=== PATIENT | female | born 1955 | race Two or more races ===

== ENCOUNTER 2021-11-21 11:29 | Outpatient (CLI) | payer OTHER | END 2021-11-21 11:33 | disposition home or self-care (01) | LOC: RAD 11:29 | PROVIDERS: ATTEND Orthopaedic Surgery | DX: M25.551 Pain in right hip (principal); M25.552 Pain in left hip ==

== ENCOUNTER 2021-12-10 09:29 | Outpatient (CLI) | payer OTHER | END 2021-12-10 15:00 | disposition home or self-care (01) | LOC: LAB 09:29 | PROVIDERS: ATTEND Orthopaedic Surgery | DX: D64.89 Other specified anemias (principal); N39.0 Urinary tract infection, site not specified; I49.8 Other specified cardiac arrhythmias; I10 Essential (primary) hypertension; Z76.89 Persons encountering health services in other specified circumstances; E03.8 Other specified hypothyroidism; D68.8 Other specified coagulation defects; B95.62 Methicillin resistant Staphylococcus aureus infection as the cause of diseases classified elsewhere; E11.9 Type 2 diabetes mellitus without complications; E83.42 Hypomagnesemia; E88.89 Other specified metabolic disorders; B96.3 Hemophilus influenzae [H. influenzae] as the cause of diseases classified elsewhere ==

== ENCOUNTER 2021-12-10 14:08 | Inpatient (IN) | payer OTHER ==
[~2021-12-10] VITALS: Ht 170.2 cm; Wt 70.3 kg
[2021-12-19] MEDS ORDERED: OMEPRAZ PO (14:57)
[2021-12-19] MEDS ORDERED: XARELTO10 MG PO (14:57)
[2021-12-19] MEDS ORDERED: MEMANTINE PO (14:58)
[2021-12-25] MEDS ORDERED: CELECOXIB200 MG (11:03)
[2021-12-25] MEDS ORDERED: OMEPRAZOLE40 MG (11:03)
[2021-12-25] MEDS ORDERED: GABAPENTIN100 M2 (11:03)
[2021-12-25] MEDS ORDERED: FLUOXETINE HCL20 MG (11:03)
[2021-12-25] MEDS ORDERED: MONTELUKAST SOD10 MG (11:04)
[2021-12-25] MEDS ORDERED: ATORVASTATIN CA20 MG (11:04)
[2021-12-25] MEDS ORDERED: QUETIAPINE FUM200 M1 (11:04)
[2021-12-25] MEDS ORDERED: FLUCONAZOLE150 MG (11:04)
[2021-12-25] MEDS ORDERED: MEMANTINE HCL10 MG (11:04)
[2021-12-25] MEDS ORDERED: ESTAZOLAM2 MG (11:04)
[2021-12-25] MEDS ORDERED: OPTIVE EYE DROP15 ML (11:05)
[2021-12-25] MEDS ORDERED: FLUTICASONE-SA1 EAC4 (11:05)
== END 2021-12-28 17:49 | DRG 470 ==
LOC: O/R 12-25 09:26 → SURH 12-25 09:26
PROVIDERS: ADMIT Orthopaedic Surgery; ATTEND Orthopaedic Surgery
PROC: 0SR90JZ Replacement of Right Hip Joint with Synthetic Substitute, Open Approach (ICD-10-PCS; principal; 2021-12-25 09:30)
PROC: 30233N1 Transfusion of Nonautologous Red Blood Cells into Peripheral Vein, Percutaneous Approach (ICD-10-PCS; 2021-12-27)
DX: M16.11 Unilateral primary osteoarthritis, right hip (principal); D62 Acute posthemorrhagic anemia; I73.89 Other specified peripheral vascular diseases

== ENCOUNTER 2023-01-02 08:51 | Outpatient (CLI) | payer OTHER ==
[~2023-01-02 08:51] MED LIST: ATORVASTATIN CA20 MG; CELECOXIB200 MG; ESTAZOLAM2 MG; FLUCONAZOLE150 MG; FLUOXETINE HCL20 MG; FLUTICASONE-SA1 EAC4; GABAPENTIN100 M2; MEMANTINE HCL10 MG; MEMANTINE PO; MONTELUKAST SOD10 MG; OMEPRAZ PO; OMEPRAZOLE40 MG; OPTIVE EYE DROP15 ML; QUETIAPINE FUM200 M1; XARELTO10 MG PO
== END 2023-01-02 08:56 | disposition home or self-care (01) ==
LOC: RAD 08:51
PROVIDERS: ATTEND Orthopaedic Surgery
DX: Z96.641 Presence of right artificial hip joint (principal)

== ENCOUNTER → 2023-01-10 08:58 | Outpatient (CLI) | payer OTHER | END | disposition home or self-care (01) | LOC: LAB 08:58 | PROVIDERS: ATTEND Orthopaedic Surgery | DX: E55.9 Vitamin D deficiency, unspecified (principal); M85.9 Disorder of bone density and structure, unspecified; E56.1 Deficiency of vitamin K; E21.3 Hyperparathyroidism, unspecified; E88.9 Metabolic disorder, unspecified; M81.8 Other osteoporosis without current pathological fracture ==

== ENCOUNTER → 2023-09-11 | Outpatient (CLI) | payer OTHER | END | disposition home or self-care (01) | LOC: RAD 09:32 | PROVIDERS: ATTEND Orthopaedic Surgery | DX: Z96.641 Presence of right artificial hip joint (principal); Z88.0 Allergy status to penicillin; Z88.6 Allergy status to analgesic agent; Z91.018 Allergy to other foods; Z91.040 Latex allergy status ==